=== PATIENT | female | born 1930 | race Caucasian/White ===

== ENCOUNTER 2019-08-25 11:50 | Inpatient (IN) ==
[2019-08-25] MEDS ORDERED: 0.9 % Sodium Chloride 1,000 ML IVC ONE (12:34)
[2019-08-25] MEDS ORDERED: Isovue-370 500 ML BOTTLE IVP ONE (12:34)
[2019-08-25 12:57] LABS: Hemoglobin 11.5 g/dL (11.5-15.4); Mean Corpuscular HGB Conc 31.9 g/dL (31.6-35.5); Mean Corpuscular Hemoglobin 29.6 pg (28.0-33.3); Mean Corpuscular Volume 92.8 fL (83.0-100.0); Mean Platelet Volume 9.3 fL (9.4-12.4); Platelet Count 208 K/mcL (140-400); Red Blood Count 3.88 M/mcL (3.82-4.97); Red Cell Distribution Width 15.4 % (11.5-14.5); White Blood Count 7.6 K/mcL (4.3-11.1)
[2019-08-25 13:05] LABS: INR 1.1; Prothrombin Time 12.6 Seconds (9.4-12.1)
[2019-08-25 13:08] LABS: Activated Partial Thrombo Time 29.7 Seconds (26.0-36.0)
[2019-08-25 13:12] LABS: Calcium 9.9 mg/dL (8.6-10.3)
[2019-08-25 13:25] LABS: Troponin I 0.05 ng/mL (< 0.04)
[2019-08-25 13:38] LABS: Anisocytosis 1+ (Not Present); Eosinophils # 0.2 K/mcL (0.0-0.6); Monocytes # 1.5 K/mcL (0.0-1.3); Polychromasia 1+ (Not Present); Toxic Granulation Present (Not Present)
[2019-08-25 13:39] LABS: Plasma Cells Present (Not Present); Platelet Estimate Normal (Normal); Reactive Lymphocytes Present (Not Present)
[2019-08-25] MEDS ORDERED: 0.9 % Sodium Chloride 1,000 ML ONE (14:21)
[2019-08-25] MEDS ORDERED: 0.9 % Sodium Chloride 1,000 ML IVC STA (14:22)
[2019-08-25] MEDS ORDERED: Azithromycin 500 MG in 0.9 % Sodium Chloride 250 ML IVPB ONE (14:33)
[2019-08-25] MEDS ORDERED: Naloxone 0.4 MG/ML INJ IVP PRN (17:37)
[2019-08-25] MEDS ORDERED: Mag Hydrox/Al Hydrox/Simeth 30 ML UDC PO PRN (17:37)
[2019-08-25] MEDS ORDERED: Ondansetron ODT 4 MG TAB.RAPDIS SL PRN (17:37)
[2019-08-25] MEDS ORDERED: Ipratropium/Albuterol Neb 3 ML IH PRN (17:41)
[2019-08-25] MEDS: *HR* Heparin 5,000 UNIT/ML VIAL SQ SCH (19:26)
[2019-08-25] MEDS: Acetaminophen 325 MG TABLET PO SCH ×3 (19:27→21:54)
[2019-08-25] MEDS: amLODIPine 5 MG TABLET PO SCH (20:50)
[2019-08-25] MEDS: Beclomethasone 40mcg REDIHALER IH SCH (22:08)
[2019-08-26] MEDS: Acetaminophen 325 MG TABLET PO SCH ×4 (05:52→23:00)
[2019-08-26] MEDS: *HR* Heparin 5,000 UNIT/ML VIAL SQ SCH ×2 (05:52→17:10)
[2019-08-26 07:48] LABS: Basophils % 0.1 %; Eosinophils # 0.1 K/mcL (0.0-0.6); Eosinophils % 0.7 %; Hematocrit 34.9 % (35.3-44.9); Hemoglobin 11.2 g/dL (11.5-15.4); Immature Granulocytes % 0.7 % (0-4); Lymphocytes # 1.3 K/mcL (0.6-4.6); Lymphocytes % 18.6 %; Mean Corpuscular HGB Conc 32.1 g/dL (31.6-35.5); Mean Corpuscular Hemoglobin 29.9 pg (28.0-33.3); Mean Corpuscular Volume 93.1 fL (83.0-100.0); Mean Platelet Volume 9.7 fL (9.4-12.4); Monocytes # 1.2 K/mcL (0.0-1.3); Neutrophils # 4.1 K/mcL (1.6-8.9); Platelet Count 200 K/mcL (140-400); Red Blood Count 3.75 M/mcL (3.82-4.97); Red Cell Distribution Width 15.5 % (11.5-14.5); Segmented Neutrophils % 61.9 %; White Blood Count 6.7 K/mcL (4.3-11.1)
[2019-08-26 08:03] LABS: Calcium 9.2 mg/dL (8.6-10.3); Potassium 3.9 mEq/L (3.5-5.1)
[2019-08-26] MEDS: amLODIPine 5 MG TABLET PO SCH ×2 (08:25→20:49)
[2019-08-26] MEDS: hydroCHLOROthiazide 25 MG TABLET PO SCH (08:26)
[2019-08-26] MEDS: Metoprolol XL (24 HR) Succ 50 MG TAB.ER.24H PO SCH (08:26)
[2019-08-26] MEDS: Lisinopril 20 MG TABLET PO SCH (08:27)
[2019-08-26] MEDS: cefTRIAXone 1,000 MG in Water for inj. (sterile) 10 ML IVP SCH (08:27)
[2019-08-26] MEDS: (Febuxostat [Uloric] 40 MG) PO SCH (08:28)
[2019-08-26] MEDS ORDERED: Lisinopril-HCTZ 20-12.5mg TABLET PO SCH (09:00)
[2019-08-26] MEDS ORDERED: Metoprolol 100 MG TABLET PO SCH (09:00)
[2019-08-26] MEDS: Beclomethasone 40mcg REDIHALER IH SCH ×2 (09:03→22:35)
[2019-08-26 12:53] LABS: Adenovirus Not Detected (Not Detect); Coronavirus 229E Not Detected (Not Detect); Coronavirus HKU1 Not Detected (Not Detect); Coronavirus NL63 Not Detected (Not Detect); Coronavirus OC43 Not Detected (Not Detect); Human Metapneumovirus Not Detected (Not Detect); Human Rhinovirus/Enterovirus Not Detected (Not Detect)
[2019-08-26 12:54] LABS: Bordetella Pertussis Not Detected (Not Detect); Chlamydophila pneumoniae Not Detected (Not Detect); Influenza B Not Detected (Not Detect); Mycoplasma pneumoniae Not Detected (Not Detect); Parainfluenza Virus 1 Not Detected (Not Detect); Parainfluenza Virus 2 Not Detected (Not Detect); Parainfluenza Virus 3 Not Detected (Not Detect); Parainfluenza Virus 4 Not Detected (Not Detect); Respiratory Syncytial Virus Not Detected (Not Detect)
[2019-08-26 12:56] LABS: Influenza A Subtype 2009 H1 DETECTED (Not Detect)
[2019-08-26] MEDS: Azithromycin 500 MG in 0.9 % Sodium Chloride 250 ML IVPB SCH (14:11)
[2019-08-27] MEDS: Acetaminophen 325 MG TABLET PO SCH ×3 (05:22→17:26)
[2019-08-27] MEDS: *HR* Heparin 5,000 UNIT/ML VIAL SQ SCH ×2 (05:22→17:26)
[2019-08-27 07:59] LABS: Hematocrit 30.9 % (35.3-44.9); Hemoglobin 9.8 g/dL (11.5-15.4); Mean Corpuscular HGB Conc 31.7 g/dL (31.6-35.5); Mean Corpuscular Hemoglobin 29.8 pg (28.0-33.3); Mean Corpuscular Volume 93.9 fL (83.0-100.0); Mean Platelet Volume 9.7 fL (9.4-12.4); Platelet Count 185 K/mcL (140-400); Red Blood Count 3.29 M/mcL (3.82-4.97); Red Cell Distribution Width 15.1 % (11.5-14.5); White Blood Count 5.9 K/mcL (4.3-11.1)
[2019-08-27 08:16] LABS: Troponin I 0.03 ng/mL (< 0.04)
[2019-08-27 08:17] LABS: Calcium 8.9 mg/dL (8.6-10.3); Potassium 4.1 mEq/L (3.5-5.1)
[2019-08-27] MEDS: Beclomethasone 40mcg REDIHALER IH SCH ×2 (09:20→22:39)
[2019-08-27] MEDS: cefTRIAXone 1,000 MG in Water for inj. (sterile) 10 ML IVP SCH (09:34)
[2019-08-27] MEDS: Lisinopril 20 MG TABLET PO SCH (09:34)
[2019-08-27] MEDS: Metoprolol XL (24 HR) Succ 50 MG TAB.ER.24H PO SCH (09:35)
[2019-08-27] MEDS: hydroCHLOROthiazide 25 MG TABLET PO SCH (09:35)
[2019-08-27] MEDS: amLODIPine 5 MG TABLET PO SCH ×2 (09:35→20:10)
[2019-08-27] MEDS: (Febuxostat [Uloric] 40 MG) PO SCH (09:36)
[2019-08-27] MEDS: Azithromycin 500 MG in 0.9 % Sodium Chloride 250 ML IVPB SCH (15:23)
[2019-08-28] MEDS: Acetaminophen 325 MG TABLET PO SCH ×4 (00:01→18:04)
[2019-08-28] MEDS: *HR* Heparin 5,000 UNIT/ML VIAL SQ SCH ×2 (06:33→18:05)
[2019-08-28] MEDS: cefTRIAXone 1,000 MG in Water for inj. (sterile) 10 ML IVP SCH (09:43)
[2019-08-28] MEDS: hydroCHLOROthiazide 25 MG TABLET PO SCH (09:44)
[2019-08-28] MEDS: Metoprolol XL (24 HR) Succ 50 MG TAB.ER.24H PO SCH (09:44)
[2019-08-28] MEDS: amLODIPine 5 MG TABLET PO SCH ×2 (09:45→22:50)
[2019-08-28] MEDS: Lisinopril 20 MG TABLET PO SCH (09:45)
[2019-08-28] MEDS: Beclomethasone 40mcg REDIHALER IH SCH ×2 (09:45→22:04)
[2019-08-28] MEDS: (Febuxostat [Uloric] 40 MG) PO SCH (09:45)
[2019-08-28] MEDS: Azithromycin 500 MG in 0.9 % Sodium Chloride 250 ML IVPB SCH (16:10)
[2019-08-28 16:34] LABS: Hematocrit 32.3 % (35.3-44.9); Hemoglobin 10.1 g/dL (11.5-15.4); Mean Corpuscular HGB Conc 31.3 g/dL (31.6-35.5); Mean Corpuscular Hemoglobin 29.2 pg (28.0-33.3); Mean Corpuscular Volume 93.4 fL (83.0-100.0); Mean Platelet Volume 9.8 fL (9.4-12.4); Platelet Count 189 K/mcL (140-400); Red Blood Count 3.46 M/mcL (3.82-4.97); White Blood Count 4.9 K/mcL (4.3-11.1)
[2019-08-28 16:48] LABS: Calcium 9.2 mg/dL (8.6-10.3); Potassium 4.3 mEq/L (3.5-5.1)
[2019-08-29] MEDS: Acetaminophen 325 MG TABLET PO SCH ×4 (00:09→17:53)
[2019-08-29] MEDS: *HR* Heparin 5,000 UNIT/ML VIAL SQ SCH ×2 (06:40→17:53)
[2019-08-29 07:26] LABS: Hematocrit 33.5 % (35.3-44.9); Hemoglobin 10.8 g/dL (11.5-15.4); Mean Corpuscular HGB Conc 32.2 g/dL (31.6-35.5); Mean Corpuscular Hemoglobin 29.8 pg (28.0-33.3); Mean Corpuscular Volume 92.5 fL (83.0-100.0); Mean Platelet Volume 10.3 fL (9.4-12.4); Platelet Count 197 K/mcL (140-400); Red Blood Count 3.62 M/mcL (3.82-4.97); Red Cell Distribution Width 14.8 % (11.5-14.5); White Blood Count 4.9 K/mcL (4.3-11.1)
[2019-08-29 07:44] LABS: Calcium 9.4 mg/dL (8.6-10.3)
[2019-08-29] MEDS: Metoprolol XL (24 HR) Succ 50 MG TAB.ER.24H PO SCH (08:46)
[2019-08-29] MEDS: Lisinopril 20 MG TABLET PO SCH (08:46)
[2019-08-29] MEDS: hydroCHLOROthiazide 25 MG TABLET PO SCH (08:46)
[2019-08-29] MEDS: cefTRIAXone 1,000 MG in Water for inj. (sterile) 10 ML IVP SCH (08:46)
[2019-08-29] MEDS: amLODIPine 5 MG TABLET PO SCH ×2 (08:46→21:36)
[2019-08-29] MEDS: (Febuxostat [Uloric] 40 MG) PO SCH (08:50)
[2019-08-29] MEDS: Azithromycin 500 MG in 0.9 % Sodium Chloride 250 ML IVPB SCH (17:53)
[2019-08-30] MEDS: Acetaminophen 325 MG TABLET PO SCH ×2 (01:08→06:43)
[2019-08-30 06:33] VITALS: BP 150/62
[2019-08-30] MEDS: *HR* Heparin 5,000 UNIT/ML VIAL SQ SCH (06:43)
[2019-08-30] MEDS: hydroCHLOROthiazide 25 MG TABLET PO SCH (09:09)
[2019-08-30] MEDS: amLODIPine 5 MG TABLET PO SCH (09:09)
[2019-08-30] MEDS: Metoprolol XL (24 HR) Succ 50 MG TAB.ER.24H PO SCH (09:09)
[2019-08-30] MEDS: Lisinopril 20 MG TABLET PO SCH (09:09)
[2019-08-30] MEDS: cefTRIAXone 1,000 MG in Water for inj. (sterile) 10 ML IVP SCH (09:10)
[2019-08-30] MEDS: (Febuxostat [Uloric] 40 MG) PO SCH (09:11)
[2019-08-30 11:15] LABS: Hematocrit 34.2 % (35.3-44.9); Hemoglobin 10.8 g/dL (11.5-15.4); Mean Corpuscular HGB Conc 31.6 g/dL (31.6-35.5); Mean Corpuscular Hemoglobin 29.3 pg (28.0-33.3); Mean Corpuscular Volume 92.9 fL (83.0-100.0); Mean Platelet Volume 9.8 fL (9.4-12.4); Platelet Count 215 K/mcL (140-400); Red Blood Count 3.68 M/mcL (3.82-4.97); Red Cell Distribution Width 14.8 % (11.5-14.5); White Blood Count 5.2 K/mcL (4.3-11.1)
[2019-08-30 11:36] LABS: Calcium 9.3 mg/dL (8.6-10.3); Potassium 4.2 mEq/L (3.5-5.1)
== END 2019-08-30 13:00 | disposition home or self-care (01) | DRG 194 ==
LOC: INPPIK 11:50 → EMEROOPIK 11:50 → INPPIK 18:29
PROVIDERS: ADMIT Family Medicine; ATTEND Family Medicine